=== PATIENT | female | born 1945 | race Caucasian/White ===

== ENCOUNTER → 2017-07-23 | Outpatient (CLI) | payer MEDICARE ==
[2016-05-14 20:45] VITALS: BP 134/64
[~2017-07-23] MED LIST: AMLO2.5T PO; AMOX500C PO; ASPI-630 PO; CITA10TA4 PO; CITA10TA8 PO; DILT180C2 PO; LEVO100T5 PO; ONDA4TAB7 PO; PANT40GR PO; PANT40TA5 PO; PRED20TA PO; Promethazine Hcl/Codeine PO; URSO300C26 PO; URSO500T8 PO; VENTOLIN HFA18 GM INH
--- NOTE | 2017-07-23 08:27 | RAD ---
Complete abdominal ultrasound 07/23/2017 Indication: Primary biliary cirrhosis. Comparison study: None available. Discussion: Ultrasound evaluation of the abdomen was performed. Static images were submitted to PACS. Partially visualized portions of the pancreas are unremarkable. Visualized portions of the IVC and aorta are unremarkable. Portal venous flows in the normal direction. Hepatic echotexture is normal. The liver is normal in size measuring 14.6 cm longitudinally. Visualized portions of the liver contour grossly normal. No intrahepatic biliary dilatation is identified by ultrasound. The gallbladder is unremarkable in appearance without evidence of wall thickening, stones, or sludge. Common bile duct is nondilated at 4 mm. The right kidney is somewhat small in size but otherwise unremarkable appearance measuring 8.4 cm longitudinally. The spleen is normal in size measuring 8 cm in length. Left kidney is normal in appearance measuring 10 cm in length. Impression: 1. Unremarkable sonographic appearance of the liver 2. Right kidney is somewhat small in size. Mild atrophy not excluded.
== END | disposition home or self-care (01) ==
LOC: US 07:13
PROVIDERS: ATTEND Internal Medicine Gastroenterology
DX: K74.3 Primary biliary cirrhosis (principal)
CPT/HCPCS: 76700

== ENCOUNTER 2017-11-13 20:51 | Inpatient (IN) | payer MEDICARE ==
[2017-11-13 21:37] LABS: BILIRUBIN,URINE NEGATIVE (NEG); CLARITY,URINE CLEAR; COLOR,URINE AMBER; GLUCOSE,URINE NEGATIVE (NEG); NITRITE,URINE NEGATIVE (NEG); PROTEIN,URINE 30 mg/dL (NEG-TRACE)
[2017-11-13 21:44] LABS: BASE EXCESS ABG -1 mmol/L (-3-3); HCO3 ABG 23 mmol/L (21-28); PCO2 ABG 35 mmHg (35-46); PH ABG 7.43 (7.35-7.45); PO2 ABG 53 mmHg (65-108); SAT O2 ABG 88 % (92-99)
[2017-11-13] MEDS: IPRATRPIUM/ALBUTEROL 0.5/2.5MG 3 ML NEBU. NEB (21:47)
[2017-11-13 21:52] LABS: FIO2 ABG 21
[2017-11-13 21:53] LABS: BACTERIA,URINE 0 /HPF (0-FEW); SQUAMOUS EPITHELIAL CELL,UR MOD /LPF
[2017-11-13 21:59] LABS: INFLUENZA A PATIENT NEGATIVE (NEGATIVE); INFLUENZA B PATIENT NEGATIVE (NEGATIVE); OBC FLU VALID
[2017-11-13 22:12] LABS: BASO # 0.1 x10^3/uL (0.0-0.2); BASO % 0 % (0-3); EOS % 0 % (0-3); HEMATOCRIT 39.6 % (36.0-47.0); HEMOGLOBIN 13.5 g/dL (12.0-15.5); LYMPH # 1.4 x10^3/uL (1.0-4.8); LYMPH % 8 % (24-48); MEAN CORPUSCULAR HEMOGLOBIN 32 pg (25-35); MEAN CORPUSCULAR HGB CONC 34 g/dL (31-37); MEAN CORPUSCULAR VOLUME 94 fL (79-100); MONO # 1.9 x10^3/uL (0.0-1.1); MONO % 11 % (0-9); NEUT # 13.5 x10^3uL (1.8-7.7); NEUT % 80 % (31-73); PLATELET COUNT 211 x10^3/uL (140-400); RED BLOOD COUNT 4.23 x10^6/uL (3.50-5.40); WHITE BLOOD COUNT 16.9 x10^3/uL (4.0-11.0)
[2017-11-13 22:13] LABS: ADD MAN DIFF? YES
[2017-11-13 22:25] LABS: D-DIMER 1.09 ug/mlFEU (0.00-0.50)
[2017-11-13] MEDS: ONDANSETRON PF 4 MG/2 ML VIAL. IV (22:25)
[2017-11-13] MEDS: IV NORMAL SALINE 1000ML BAG 1,000 ML IV ×2 (22:26→23:36)
[2017-11-13 22:32] LABS: ANION GAP 10 (6-14); BLOOD UREA NITROGEN 21 mg/dL (7-20); BUN/CREATININE RATIO 19 (6-20); CALCIUM 9.6 mg/dL (8.5-10.1); CARBON DIOXIDE 27 mmol/L (21-32); CHLORIDE 100 mmol/L (98-107); CREATININE 1.1 mg/dL (0.6-1.0); GFR 49.2; GLUCOSE 117 mg/dL (70-99); POTASSIUM 3.9 mmol/L (3.5-5.1); SODIUM 137 mmol/L (136-145)
[2017-11-13 22:33] LABS: ALBUMIN 3.4 g/dL (3.4-5.0); ALBUMIN/GLOBULIN RATIO 0.7 (1.0-1.7); ALK PHOS 207 U/L (46-116); ALT (SGPT) 38 U/L (14-59); AST (SGOT) 34 U/L (15-37); TOTAL BILIRUBIN 0.9 mg/dL (0.2-1.0)
[2017-11-13 22:38] LABS: TROPONINI < 0.017 ng/mL (0.000-0.055)
[2017-11-13 22:46] LABS: CKMB MASS < 0.5 ng/mL (0.0-3.6); CREATINE KINASE 141 U/L (26-192)
[2017-11-13 22:49] LABS: % BANDS 19 % (0-9); % LYMPHS 9 % (24-48); % METAS 1 % (0-0); % MONOS 10 % (0-10); % SEGS 61 % (35-66); PLT ESTIMATE ADEQUATE (ADEQUATE)
[2017-11-13] MEDS ORDERED: levOFLOXacin PER PHARMACY. MC (23:00)
[2017-11-13] MEDS ORDERED: ONDANSETRON PF 4 MG/2 ML VIAL. IV (23:00)
[2017-11-14 02:24] LABS: LACTIC ACID 1.2 mmol/L (0.4-2.0)
[2017-11-14 03:50] LABS: TROPONINI < 0.017 ng/mL (0.000-0.055)
[2017-11-14 05:27] LABS: ANION GAP 10 (6-14); BLOOD UREA NITROGEN 19 mg/dL (7-20); CALCIUM 8.4 mg/dL (8.5-10.1); CARBON DIOXIDE 26 mmol/L (21-32); CHLORIDE 105 mmol/L (98-107); CREATININE 1.1 mg/dL (0.6-1.0); GFR 49.2; GLUCOSE 74 mg/dL (70-99); POTASSIUM 3.9 mmol/L (3.5-5.1); SODIUM 141 mmol/L (136-145)
[2017-11-14 05:43] LABS: TROPONINI < 0.017 ng/mL (0.000-0.055)
[2017-11-14] MEDS: ALBUTEROL SULFATE 2.5 MG/3 ML NEBU. NEB ×5 (08:32→20:00)
[2017-11-14] MEDS: LACTOBACILLUS RHAMNOSUS GG 1 CAPSULE. PO ×2 (08:55→20:53)
[2017-11-14] MEDS: URSODIOL 300 MG CAPSULE. PO ×3 (08:55→20:53)
[2017-11-14 09:20] LABS: PROCALCITONIN 0.26 ng/mL (0.00-0.10)
[2017-11-14] MEDS: BENZONATATE 100 MG CAPSULE. PO ×3 (11:33→20:54)
[2017-11-14] MEDS: LEVOTHYROXINE 100 MCG TABLET PO (11:52)
[2017-11-14] MEDS: IBUPROFEN 400 MG TABLET. PO (12:50)
[2017-11-15] MEDS: LEVOTHYROXINE 100 MCG TABLET PO (05:40)
[2017-11-15] MEDS: ALBUTEROL SULFATE 2.5 MG/3 ML NEBU. NEB ×4 (07:51→19:41)
[2017-11-15] MEDS: IBUPROFEN 400 MG TABLET. PO ×2 (08:15→20:20)
[2017-11-15] MEDS: URSODIOL 300 MG CAPSULE. PO ×3 (09:20→20:19)
[2017-11-15] MEDS: BENZONATATE 100 MG CAPSULE. PO ×3 (09:21→20:20)
[2017-11-15] MEDS: LACTOBACILLUS RHAMNOSUS GG 1 CAPSULE. PO ×2 (09:22→20:20)
[2017-11-15] MEDS: PANTOPRAZOLE 40 MG TABLET.DR. PO (20:19)
[2017-11-15] MEDS: MAG HYDROX/ALUMINUM HYD/SIMETH 30 ML ORAL.SUSP PO (20:19)
[2017-11-16] MEDS: LEVOTHYROXINE 100 MCG TABLET PO (05:14)
[2017-11-16 07:51] LABS: ADD MAN DIFF? NO
[2017-11-16 07:55] LABS: BASO % 0 % (0-3); EOS # 0.2 x10^3/uL (0.0-0.7); EOS % 2 % (0-3); HEMOGLOBIN 12.9 g/dL (12.0-15.5); LYMPH # 2.1 x10^3/uL (1.0-4.8); LYMPH % 21 % (24-48); MEAN CORPUSCULAR HEMOGLOBIN 32 pg (25-35); MEAN CORPUSCULAR HGB CONC 34 g/dL (31-37); MEAN CORPUSCULAR VOLUME 95 fL (79-100); MONO # 1.2 x10^3/uL (0.0-1.1); MONO % 12 % (0-9); NEUT # 6.6 x10^3uL (1.8-7.7); NEUT % 65 % (31-73); PLATELET COUNT 234 x10^3/uL (140-400); RED BLOOD COUNT 4.01 x10^6/uL (3.50-5.40); RED CELL DISTRIBUTION WIDTH 12.8 % (11.5-14.5); WHITE BLOOD COUNT 10.2 x10^3/uL (4.0-11.0)
[2017-11-16] MEDS: ALBUTEROL SULFATE 2.5 MG/3 ML NEBU. NEB ×4 (08:22→19:14)
[2017-11-16] MEDS: URSODIOL 300 MG CAPSULE. PO ×3 (08:58→21:37)
[2017-11-16] MEDS: LACTOBACILLUS RHAMNOSUS GG 1 CAPSULE. PO ×2 (08:58→21:37)
[2017-11-16] MEDS: IBUPROFEN 400 MG TABLET. PO ×3 (08:58→21:37)
[2017-11-16] MEDS: BENZONATATE 100 MG CAPSULE. PO ×3 (08:58→21:40)
[2017-11-16] MEDS ORDERED: ALBUTEROL SULFATE 2.5 MG/3 ML NEBU. NEB (14:15)
[2017-11-16] MEDS ORDERED: PIP/TAZO PER PHARMACY MC (14:15)
[2017-11-16] MEDS: PIPERACILLIN/TAZOBACTAM 3.375 GM in IV NORMAL SALINE 50ML 50 ML IV ×2 (15:09→21:23)
[2017-11-16] MEDS: PANTOPRAZOLE 40 MG TABLET.DR. PO (21:37)
[2017-11-16] MEDS: MAG HYDROX/ALUMINUM HYD/SIMETH 30 ML ORAL.SUSP PO (21:37)
[2017-11-17] MEDS: PIPERACILLIN/TAZOBACTAM 3.375 GM in IV NORMAL SALINE 50ML 50 ML IV ×5 (00:40→23:09)
[2017-11-17] MEDS: LEVOTHYROXINE 100 MCG TABLET PO ×2 (05:08→19:47)
[2017-11-17] MEDS: LACTOBACILLUS RHAMNOSUS GG 1 CAPSULE. PO ×2 (08:28→19:47)
[2017-11-17] MEDS: URSODIOL 300 MG CAPSULE. PO ×3 (08:28→19:47)
[2017-11-17] MEDS: BENZONATATE 100 MG CAPSULE. PO ×3 (08:29→19:47)
[2017-11-17] MEDS: ALBUTEROL SULFATE 2.5 MG/3 ML NEBU. NEB ×4 (08:51→19:55)
[2017-11-17] MEDS: ENOXAPARIN 40 MG/0.4 ML SYRINGE. SQ (14:34)
[2017-11-17] MEDS: PANTOPRAZOLE 40 MG TABLET.DR. PO (19:46)
[2017-11-17] MEDS: IBUPROFEN 400 MG TABLET. PO (19:46)
[2017-11-17] MEDS: MAG HYDROX/ALUMINUM HYD/SIMETH 30 ML ORAL.SUSP PO (19:46)
[2017-11-18] MEDS: PIPERACILLIN/TAZOBACTAM 3.375 GM in IV NORMAL SALINE 50ML 50 ML IV ×4 (05:33→23:00)
[2017-11-18] MEDS: LEVOTHYROXINE 100 MCG TABLET PO (05:34)
[2017-11-18] MEDS: IBUPROFEN 400 MG TABLET. PO ×2 (05:34→20:41)
[2017-11-18] MEDS: ALBUTEROL SULFATE 2.5 MG/3 ML NEBU. NEB ×4 (07:28→19:56)
[2017-11-18] MEDS: URSODIOL 300 MG CAPSULE. PO ×3 (09:00→20:41)
[2017-11-18] MEDS: BENZONATATE 100 MG CAPSULE. PO ×3 (09:00→20:41)
[2017-11-18] MEDS: ENOXAPARIN 40 MG/0.4 ML SYRINGE. SQ (09:00)
[2017-11-18] MEDS: LACTOBACILLUS RHAMNOSUS GG 1 CAPSULE. PO ×2 (09:00→20:41)
[2017-11-18] MEDS: methylPREDNISolone SOD SUCC PF 125 MG/2 ML VIAL. IV ×3 (09:00→20:41)
[2017-11-18 12:12] LABS: SEDIMENTATION RATE 108 (0-25)
[2017-11-18] MEDS ORDERED: VITS A & D/LANOLIN TOPICAL OINTMENT 56GM TUBE. TP (18:30)
[2017-11-18] MEDS: MAG HYDROX/ALUMINUM HYD/SIMETH 30 ML ORAL.SUSP PO (20:40)
[2017-11-18] MEDS: PANTOPRAZOLE 40 MG TABLET.DR. PO (20:41)
[2017-11-19] MEDS: PIPERACILLIN/TAZOBACTAM 3.375 GM in IV NORMAL SALINE 50ML 50 ML IV ×4 (04:51→23:37)
[2017-11-19] MEDS: IBUPROFEN 400 MG TABLET. PO ×2 (04:52→23:40)
[2017-11-19] MEDS: methylPREDNISolone SOD SUCC PF 125 MG/2 ML VIAL. IV ×3 (04:54→22:11)
[2017-11-19] MEDS: LEVOTHYROXINE 100 MCG TABLET PO (04:55)
[2017-11-19] MEDS: ALBUTEROL SULFATE 2.5 MG/3 ML NEBU. NEB ×4 (07:30→19:27)
[2017-11-19] MEDS: URSODIOL 300 MG CAPSULE. PO ×3 (08:47→21:15)
[2017-11-19] MEDS: FAMOTIDINE 20 MG TABLET. PO ×2 (08:47→21:15)
[2017-11-19] MEDS: LACTOBACILLUS RHAMNOSUS GG 1 CAPSULE. PO ×2 (08:47→21:15)
[2017-11-19] MEDS: ENOXAPARIN 40 MG/0.4 ML SYRINGE. SQ ×2 (08:48→09:31)
[2017-11-19] MEDS: BENZONATATE 100 MG CAPSULE. PO ×3 (08:48→21:15)
[2017-11-20] MEDS: PIPERACILLIN/TAZOBACTAM 3.375 GM in IV NORMAL SALINE 50ML 50 ML IV ×4 (05:40→23:27)
[2017-11-20] MEDS: methylPREDNISolone SOD SUCC PF 125 MG/2 ML VIAL. IV ×2 (05:43→17:11)
[2017-11-20] MEDS: LEVOTHYROXINE 100 MCG TABLET PO (06:31)
[2017-11-20] MEDS: ALBUTEROL SULFATE 2.5 MG/3 ML NEBU. NEB ×4 (07:40→19:44)
[2017-11-20] MEDS: LACTOBACILLUS RHAMNOSUS GG 1 CAPSULE. PO ×2 (08:46→20:33)
[2017-11-20] MEDS: IBUPROFEN 400 MG TABLET. PO (08:46)
[2017-11-20] MEDS: URSODIOL 300 MG CAPSULE. PO ×3 (08:46→20:33)
[2017-11-20] MEDS: ENOXAPARIN 40 MG/0.4 ML SYRINGE. SQ (08:47)
[2017-11-20] MEDS: BENZONATATE 100 MG CAPSULE. PO (20:36)
[2017-11-21] MEDS: methylPREDNISolone SOD SUCC PF 125 MG/2 ML VIAL. IV (05:32)
[2017-11-21] MEDS: PIPERACILLIN/TAZOBACTAM 3.375 GM in IV NORMAL SALINE 50ML 50 ML IV (05:32)
[2017-11-21] MEDS: URSODIOL 300 MG CAPSULE. PO (07:59)
[2017-11-21] MEDS: LEVOTHYROXINE 100 MCG TABLET PO (07:59)
[2017-11-21] MEDS: LACTOBACILLUS RHAMNOSUS GG 1 CAPSULE. PO (07:59)
[2017-11-21] MEDS: ENOXAPARIN 40 MG/0.4 ML SYRINGE. SQ (08:00)
[2017-11-21] MEDS: ALBUTEROL SULFATE 2.5 MG/3 ML NEBU. NEB (08:00)
[2017-11-21] MEDS: BENZONATATE 100 MG CAPSULE. PO (08:00)
== END 2017-11-21 10:30 | disposition home or self-care (01) | DRG 177 ==
LOC: ER 20:51 → 5 NORTH 22:56
DX: J69.0 Pneumonitis due to inhalation of food and vomit (principal); J96.01 Acute respiratory failure with hypoxia; N17.9 Acute kidney failure, unspecified; J44.0 Chronic obstructive pulmonary disease with (acute) lower respiratory infection; J47.0 Bronchiectasis with acute lower respiratory infection; J15.9 Unspecified bacterial pneumonia; R79.1 Abnormal coagulation profile; E03.9 Hypothyroidism, unspecified; I10 Essential (primary) hypertension; K74.5 Biliary cirrhosis, unspecified; F41.9 Anxiety disorder, unspecified; I48.91 Unspecified atrial fibrillation; Z88.8 Allergy status to other drugs, medicaments and biological substances; Z87.01 Personal history of pneumonia (recurrent); Z87.891 Personal history of nicotine dependence; Z90.49 Acquired absence of other specified parts of digestive tract; Z90.710 Acquired absence of both cervix and uterus; Z98.51 Tubal ligation status
CPT/HCPCS: 36415; 36600; 71045; 71046; 71250; 80048; 80053; 81001; 82553; 82805; 83605; 84145; 84484; 85007; 85025; 85379; 85651; 87040; 87086; 87804; 87804-59; 93005; 94640; 94760; 96365; 96366; 96375; 99291; 99291-25; J1650; J1956; J2020; J2405; J2543; J2930; J7030; J7613; J7620